=== PATIENT | female | born 1995 | race Two or more races ===

== ENCOUNTER 2017-06-24 23:06 | Emergency (ER) | END 2017-06-25 06:15 | disposition left against medical advice (07) ==

== ENCOUNTER 2019-01-04 21:12 | Emergency (ER) | payer OTHER ==
[~2019-01-04] VITALS: Ht 165.1 cm; Wt 63.6 kg
[~2019-01-04 21:12] MED LIST: ACET500C5 PO; CEPH-443 PO; DICL50TA11 PO; PREN1TAB79 PO
[2019-01-04 21:15] VITALS: BP 133/89; PULSE 85; RESP 16; Ht 165.1 cm; Wt 63.6 kg
[2019-01-04] MEDS ORDERED: DICLOFENAC (EC) 25 MG TAB PO ONE (22:30)
== END 2019-01-04 23:29 | disposition home or self-care (01) ==
LOC: FTE 21:12
DX: R51 Headache (principal)
CPT/HCPCS: Z7502; Z7610; 99283